=== PATIENT | male | born 2000 | race Caucasian/White ===

== ENCOUNTER 2023-04-12 19:47 | Emergency (ER) | payer MEDICAID ==
[~2023-04-12] VITALS: Ht 175.3 cm; Wt 83.9 kg
--- NOTE | 2023-04-12 20:39 | NUR ---
PATIENT PRESENTS WITH LEFT EAR ACHE AND MUFFLED SOUND THAT BEGAN ON 04/09/23, DENIES PAIN
[2023-04-12 20:40] VITALS: BP_SYST 126; PULSE 70; RESP 18; TEMP 98.4; O2SAT 100
--- NOTE | 2023-04-12 21:09 | NUR ---
Patient to ER [facility] for evaluation. Side rails up. Report given to BRIGITTE COTE.
--- NOTE | 2023-04-12 21:15 | NUR ---
Pt bib partner. c/o L ear ache. Pt states onset of 2 days. Pt states started 04/10 followed by muffled hearing 04/11 afternoon. Pt denies trauma to area. Pt denies N/V/D. Pt afebrile. Pt VSS. AAOX4. No trauma noted in ear upon nurse assessment. Pt in bed with side rails up. Partner at bedside.
[2023-04-12] MEDS ORDERED: CIPR7.5D OT (21:25)
[2023-04-12 22:05] VITALS: BP_SYST 124; PULSE 72; RESP 15; TEMP 98.4; O2SAT 99
== END 2023-04-12 22:05 | disposition home or self-care (01) ==
LOC: SED 19:47
DX: H60.92 Unspecified otitis externa, left ear (principal); H92.02 Otalgia, left ear; Z79.899 Other long term (current) drug therapy
CPT/HCPCS: 99283